=== PATIENT | female | born 1975 | race Caucasian/White ===

== ENCOUNTER 2017-08-20 17:20 | Emergency (ER) | payer OTHER ==
[2017-08-20] MEDS ORDERED: ASPIRIN 81 MG CHEWABLE TAB PO ONE (17:41)
--- NOTE | 2017-08-20 17:44 | CPEKG ---
Heart Rate: 78 RR Interval: 769 P-R Interval: 228 QRSD Interval: 90 QT Interval: 352 QTC Interval: 401 P [place]: 24 QRS [place]: 59 T Wave [place]: 66 EKG Severity - ABNORMAL ECG - EKG Impression: SINUS RHYTHM EKG Impression: FIRST DEGREE AV BLOCK Preliminary Awaiting MD Review
[2017-08-20] MEDS ORDERED: IPRATROPIUM/ALBUTEROL 3 ML DEYVIAL IH ONE (18:04)
[2017-08-20 18:05] LABS: % IMMATURE GRANULYOCYTES 0.1 % (0.0-1.1); ABSOLUTE IMMATURE GRANULOCYTES 0.01 10^3/uL (0.00-0.10); ADD DIFF? NO; ADD MORPH? NO; ADD SCAN? NO; ATYPICAL LYMPHOCYTE FLAG 0 (0-99); FRAGMENT RBC FLAG 0 (0-99); HEMATOCRIT 42.3 % (38.0-47.0); HEMOGLOBIN 14.8 g/dL (12.6-16.3); LEFT SHIFT FLG 0 (0-99); LIPEMIA HEMOLYSIS FLAG 90 (0-99); MEAN CELL HEMOGLOBIN 31.7 pg (27.9-34.1); MEAN CELL VOLUME 90.6 fL (81.5-99.8); MEAN PLATELET VOLUME 9.7 fL (8.7-11.7); PLATELET CLUMPS FLAG 0 (0-99); PLATELET COUNT 247 10^3/uL (150-400); RED BLOOD CELL COUNT 4.67 10^6/uL (4.18-5.33); RED CELL DISTRIBUTION WIDTH 13.2 % (11.5-15.2)
[2017-08-20 18:20] LABS: ANION GAP 13 mEq/L (8-16); CALCIUM 10.3 mg/dL (8.5-10.4); CARBON DIOXIDE 24 mEq/l (22-31); CHLORIDE 104 mEq/L (97-110); CREATININE 0.9 mg/dL (0.6-1.0); GLOMERULAR FILTRATION RATE > 60; GLUCOSE 96 mg/dL (70-100); POTASSIUM 4.1 mEq/L (3.5-5.2); SODIUM 141 mEq/L (134-144)
[2017-08-20 18:26] LABS: TROPONIN I < 0.012 ng/mL (0.000-0.034)
--- NOTE | 2017-08-20 18:30 | EDPHY ---
H & P Stated Complaint: cp mid sternal Time Seen by Provider: 08/20/17 17:27 HPI/ROS: CHIEF COMPLAINT: Chest pain History by patient HISTORY OF PRESENT ILLNESS: 41-year-old otherwise healthy woman presents complaining of acute onset of substernal chest pain which she describes as somewhat pressure-like and severe which occurred when she awoke from a nap. Before lying down she just felt slightly tired. The chest pain was associated with some shortness of breath and some generalized weakness. She went to the bathroom, had a bout of loose stools, and thinks she may have briefly passed out while on the toilet. She then continued to have the persistent chest pain and difficulty breathing. She also felt some numbness and tingling in her bilateral fingers. There were no associated palpitations. The symptoms have subsequently subsided. The whole episode lasted around 45 minutes for slightly longer and resolved just after arrival. She did not do any unusual activity today and in fact, rode her bike to an acupuncture appointment that she goes to for stress. She rides her bike regularly for transportation and works out 45 days a week in the gym and never gets chest pain with these activities. She has had a dry cough for the past couple days. She denies any fever, chills or nausea or vomiting. She has a history of exercise-induced asthma in the past but does not currently use an inhaler or has not currently been symptomatic. She vapes marijuana but denies any cigarette smoking. She uses some vitamin supplements. She has no history of hypertension, diabetes, high cholesterol or first-degree relatives with heart disease. There is no family history of sudden cardiac . REVIEW OF SYSTEMS: As in HPI, and all other systems reviewed and are negative Source: Patient - Personal History LMP (Females 10-55): Now - Medical/Surgical History Hx Asthma: No Hx Chronic Respiratory Disease: No Hx Diabetes: No Hx Cardiac Disease: No Hx Renal Disease: No - Family History Significant Family History: No pertinent family hx - Social History Smoking Status: Never smoked - Physical Exam Exam: General Appearance: Alert, comfortable, well appearing. Head: normocephalic, atraumatic Eyes: Pupils equal and round, reactive to light, no pallor or injection. Mouth: Mucous membranes moist. Respiratory: Normal, effort, lungs are clear to auscultation. Positive scattered wheezes especially with forced expiration and cough. No chest wall tenderness Cardiovascular: Regular rate and rhythm. S1, S2, no murmurs, gallops or rubs appreciated Gastrointestinal: Abdomen is soft and nontender, no masses, bowel sounds normal. Back: No CVA tenderness, no bony tenderness Neurological: Awake, alert and oriented x 3, no pronator drift, normal gait, no pronator drift Skin: Warm and dry, no rashes. Musculoskeletal: No deformities or tenderness. Extremities: full range of motion, no edema, DP2+ bilat Psychiatric: Patient has normal affect, there is no agitation. Constitutional: Initial Vital Signs Heart Rate 85 08/20/17 17:29 Respiratory Rate 16 08/20/17 17:29 Blood Pressure 124/85 H 08/20/17 17:29 O2 Sat (%) 98 08/20/17 17:29 O2 Delivery Mode Room Air Allergies/Adverse Reactions: No Known Allergies Allergy (Unverified 08/20/17 17:31) Home Medications: Medication Instructions Recorded Albuterol [Proventil Inhaler HFA 1 - 2 puffs IH Q4H #1 mdi 08/20/17 (*)] Medical Decision Making - Diagnostics EKG Interpretation: Normal sinus rhythm at a rate of 78 with first-degree AV block, normal axis, no ST segment abnormalities, no delta wave, no Brugada syndrome. Impression: Abnormal EKG. Imaging Results: Imaging Impressions Chest X-Ray 08/20/17 18:05 Impression: No pneumonia. ED Course/Re-evaluation: 41-year-old woman with no past medical history presents complaining of episode of chest pain, shortness of breath and syncope at home. On arrival here the patient has stable vital signs. ECG shows First-degree AV block but is otherwise unremarkable. Lab work was all within normal limits. A D-dimer is negative thus ruling out pulmonary embolism in a patient with low pretest probability. Chest x-ray showed no evidence of pneumonia, pneumothorax or other acute abnormality. Because the patient was wheezing, she was given a DuoNeb with slight improvement in her symptoms and on repeat exam her lungs were clear. At this point because of the patient's symptoms are unclear but I doubt acute coronary syndrome. Plan is to repeat a troponin in 3 hours. While awaiting repeat troponin at 7 40 p.m. the patient began feeling chest discomfort again which she describes as hot in her chest as well as a somewhat pleuritic pain and her left upper back. Patient was in normal sinus rhythm on the monitor at this time. An ECG was repeated which showed normal sinus rhythm at a rate of 82, with resolution of the 1st degree AV block, no evidence of acute ischemia and otherwise unchanged from prior. Patient also complained of headache behind her left eye and just feeling generally unwell. Patient was given reassurance. We will continue to monitor her on the rn cardiac and repeat troponin as previously planned. Patient remained in normal sinus rhythm on monitor and symptom free for the rest of her emergency department stay. A 2nd troponin was negative. This point the cause of her chest pain episode is unclear but I suspect it may be related to some underlying bronchitis with her wheezing. We will give her a trial of albuterol inhaler. Also because of the first-degree AV block on her EKG I am recommended she follow up with Cardiology. I am also recommending she follow up with her primary care physician as soon as possible. I discussed this patient and she understands. She is given a copy of her EKGs. - Data Points Laboratory Results: Laboratory Results 08/20/17 18:00 08/20/17 18:00 08/20/17 08/20/17 08/20/17 21:05 18:00 18:00 WBC RBC Hgb Hct MCV MCH MCHC RDW Plt Count MPV Neut % (Auto) Lymph % (Auto) Pender % (Auto) Eos % (Auto) Baso % (Auto) Nucleat RBC Rel Count Absolute Neuts (auto) Absolute Lymphs (auto) Absolute Monos (auto) Absolute Eos (auto) Absolute Basos (auto) Absolute Nucleated RBC Immature Gran % Immature Gran # D-Dimer 0.35 ug/mLFEU ug/mLFEU (0.00-0.50) Sodium 141 mEq/L mEq/L (134-144) Potassium 4.1 mEq/L mEq/L (3.5-5.2) Chloride 104 mEq/L mEq/L (97-110) Carbon Dioxide 24 mEq/l mEq/l (22-31) Anion Gap 13 mEq/L mEq/L (8-16) BUN 20 mg/dL mg/dL (7-23) Creatinine 0.9 mg/dL mg/dL (0.6-1.0) Estimated GFR > 60 Glucose 96 mg/dL mg/dL (70-100) Calcium 10.3 mg/dL mg/dL (8.5-10.4) Troponin I < 0.012 ng/mL ng/mL < 0.012 ng/mL ng/mL (0.000-0.034) (0.000-0.034) 08/20/17 18:00 WBC 7.69 10^3/uL 10^3/uL (3.80-9.50) RBC 4.67 10^6/uL 10^6/uL (4.18-5.33) Hgb 14.8 g/dL g/dL (12.6-16.3) Hct 42.3 % % (38.0-47.0) MCV 90.6 fL fL (81.5-99.8) MCH 31.7 pg pg (27.9-34.1) MCHC 35.0 g/dL g/dL (32.4-36.7) RDW 13.2 % % (11.5-15.2) Plt Count 247 10^3/uL 10^3/uL (150-400) MPV 9.7 fL fL (8.7-11.7) Neut % (Auto) 63.8 % % (39.3-74.2) Lymph % (Auto) 25.4 % % (15.0-45.0) Pender % (Auto) 7.4 % % (4.5-13.0) Eos % (Auto) 2.6 % % (0.6-7.6) Baso % (Auto) 0.7 % % (0.3-1.7) Nucleat RBC Rel Count 0.0 % % (0.0-0.2) Absolute Neuts (auto) 4.91 10^3/uL 10^3/uL (1.70-6.50) Absolute Lymphs (auto) 1.95 10^3/uL 10^3/uL (1.00-3.00) Absolute Monos (auto) 0.57 10^3/uL 10^3/uL (0.30-0.80) Absolute Eos (auto) 0.20 10^3/uL 10^3/uL (0.03-0.40) Absolute Basos (auto) 0.05 10^3/uL 10^3/uL (0.02-0.10) Absolute Nucleated RBC 0.00 10^3/uL 10^3/uL (0-0.01) Immature Gran % 0.1 % % (0.0-1.1) Immature Gran # 0.01 10^3/uL 10^3/uL (0.00-0.10) D-Dimer Sodium Potassium Chloride Carbon Dioxide Anion Gap BUN Creatinine Estimated GFR Glucose Calcium Troponin I Medications Given: Discontinued Medications Albuterol/Ipratropium (Duoneb) 3 ml IH EDNOW ONE Stop: 08/20/17 18:05 Last Admin: 08/20/17 18:12 Dose: 3 ml Aspirin (Aspirin) 324 mg PO EDNOW ONE Stop: 08/20/17 17:42 Last Admin: 08/20/17 18:11 Dose: 324 mg Departure - Departure Disposition: Home, Routine, Self-Care Clinical Impression: Bronchitis, 1st degree AV block Chest pain Qualifiers: Chest pain type: other chest pain Qualified Code(s): R07.89 - Other chest pain Condition: Good Instructions: Chest Pain (ED), Acute Bronchitis (ED) Additional Instructions: You were seen by Dr. Subha Melo today. We have found no it serious cause of your chest pain today. I suspect it may be related to some bronchitis. Try using albuterol inhaler if your chest is feeling tight or you are having difficulty breathing. I recommend stopping vaping marijuana, as this may be contributing. You had first-degree AV block on your EKG. This is not likely related to the chest pain at but do recommend follow-up with a local hazmat driver, Dr. Emery. Please also follow up with your primary care physician. Return for any worsening or new concerns. Referrals: Kailyn Rosado DO [Primary Care Provider] - As per Instructions Kalia Emery MD [Medical Doctor] - As per Instructions Prescriptions: Albuterol [Proventil Inhaler HFA (*)] 1 - 2 puffs IH Q4H #1 melissa
[2017-08-20 22:08] VITALS: BP 106/74; PULSE 75; RESP 18; O2SAT 97
--- NOTE | 2017-08-22 15:47 | CPEKG ---
Heart Rate: 82 RR Interval: 732 P-R Interval: 200 QRSD Interval: 90 QT Interval: 356 QTC Interval: 416 P [place]: 45 QRS [place]: 43 T Wave [place]: 56 EKG Severity - NORMAL ECG - EKG Impression: SINUS RHYTHM Preliminary Awaiting MD Review
== END 2017-08-20 22:28 | disposition home or self-care (01) ==
LOC: CED 17:20
DX: I44.0 Atrioventricular block, first degree (principal); J40 Bronchitis, not specified as acute or chronic
CPT/HCPCS: 71020-PO; 80048-PO; 84484-PO; 85025-PO; 85378-PO